=== PATIENT | male | born 1940 | race Caucasian/White ===

== ENCOUNTER 2021-05-19 11:12 | Observation (INO) | payer MEDICARE ==
[~2021-05-19] VITALS: Ht 177.8 cm; Wt 72.3 kg
[2021-05-19] MEDS ORDERED: BUME2TAB3 PO (11:56)
[2021-05-19] MEDS ORDERED: NEBI5TAB2 PO (11:56)
[2021-05-19] MEDS ORDERED: PRAM1.5T PO (11:56)
[2021-05-19] MEDS ORDERED: lutein (11:56)
[2021-05-19] MEDS ORDERED: SPIR25TA5 PO (11:56)
[2021-05-19] MEDS ORDERED: APIX2.5T PO (11:56)
[2021-05-19] MEDS ORDERED: LUTE20TA PO (11:56)
[2021-05-19] MEDS ORDERED: CHOL10003 PO (11:56)
[2021-05-19] MEDS ORDERED: CEFAZOLIN PMX 1GM/50ML 50 ML IVPB ONE (12:00)
[2021-05-19] MEDS: PLEASE ENTER HEIGHT AND WEIGHT MC SCH ×2 (12:00→17:14)
[2021-05-19] MEDS ORDERED: SODIUM CHLORIDE 0.9% 1,000 ML IV SCH (12:00)
[2021-05-19 12:09] VITALS: BP 113/72
[2021-05-19] MEDS ORDERED: CEFAZOLIN PMX 1GM/50ML 50 ML ONE (12:13)
[2021-05-19] MEDS ORDERED: LIDOCAINE 2%, 20ML ONE (12:13)
[2021-05-19] MEDS ORDERED: MIDAZOLAM 1 MG/ML, 5ML ONE (12:13)
[2021-05-19] MEDS ORDERED: FENTANYL PF 100 MCG/2ML ONE (12:13)
[2021-05-19] MEDS ORDERED: CEFAZOLIN 1,000 MG ONE (12:13)
[2021-05-19 12:21] LABS: BASOPHILS % (AUTO) 1 % (0-1); EOSINOPHILS % (AUTO) 1 % (1-7); LYMPHOCYTES % (AUTO) 8 % (22-44); MEAN CORPUSCULAR HEMOGLOBIN 31.3 pg (27.5-34.5); MEAN CORPUSCULAR HGB CONC 33.2 g/dL (33.2-36.2); MEAN PLATELET VOLUME 7.3 fL (7.4-10.4); MONOCYTES % (AUTO) 12 % (2-9); NEUTROPHILS % (AUTO) 79 % (42-75); PLATELET COUNT 110 x10^3/uL (130-400)
[2021-05-19 12:34] LABS: ANION GAP 10 mmol/L (5-15); CALCIUM 8.2 mg/dL (8.5-10.1); CHLORIDE 107 mmol/L (98-107)
[2021-05-19 12:36] LABS: CREATININE 2.15 mg/dL (0.7-1.3)
[2021-05-19 19:29] VITALS: BP 123/81
[2021-05-19] MEDS ORDERED: CEFAZOLIN PMX 1GM/50ML 50 ML IV ONE (21:00)
[2021-05-20 00:09] VITALS: BP 114/74
[2021-05-20 07:32] VITALS: BP 121/75
== END 2021-05-20 11:30 | disposition home or self-care (01) ==
LOC: CACL 11:12 → 5SO 14:23 → CACL 23:35 → INTOOBSV 23:36 → 5SO 23:36
PROVIDERS: ADMIT Internal Medicine Interventional Cardiology; ATTEND Internal Medicine Cardiovascular Disease
DX: T82.110A Breakdown (mechanical) of cardiac electrode, initial encounter (principal); I49.5 Sick sinus syndrome; I48.20 Chronic atrial fibrillation, unspecified; I08.3 Combined rheumatic disorders of mitral, aortic and tricuspid valves; I13.0 Hypertensive heart and chronic kidney disease with heart failure and stage 1 through stage 4 chronic kidney disease, or unspecified chronic kidney disease; I50.32 Chronic diastolic (congestive) heart failure; N18.9 Chronic kidney disease, unspecified; D63.1 Anemia in chronic kidney disease; J44.9 Chronic obstructive pulmonary disease, unspecified; Z79.899 Other long term (current) drug therapy; Z79.01 Long term (current) use of anticoagulants; Z95.0 Presence of cardiac pacemaker; Z51.81 Encounter for therapeutic drug level monitoring; Z87.891 Personal history of nicotine dependence
CPT/HCPCS: 33207; 36415; 71045; 71046; 80048; 85025; 96365; 99156; 99157; C1779; C1785; C1892; C1894; G0378; J0690; J2250; J3010; J3490; Q9967